=== PATIENT | female | born 1985 | race Caucasian/White ===

== ENCOUNTER 2017-06-29 21:02 | Inpatient (IN) | payer BC ==
[~2017-06-29] VITALS: Ht 170.2 cm; Wt 114.3 kg
[2017-06-29 21:44] LABS: BASOPHILS 0 % (0-2); EOSINOPHILS 0.6 % (0-7); HEMATOCRIT 39.5 % (36.0-48.0); HEMOGLOBIN 12.9 g/dL (12-16); IMMATURE GRANULOCYTES 0.2 % (0-5); LYMPHOCYTES 22.4 % (15-50); MCH 29.1 pg (26.0-34.0); MCHC 32.7 g/dL (31.0-37.0); MEAN PLATELET VOLUME 10.8 fL (7.4-10.4); MONOCYTES 7.3 % (2-11); NEUTROPHILS 69.5 % (40-80); RBC 4.44 10x6/uL (4.00-5.40); RDW 14.2 % (11.5-14.5); WBC 5.2 10x3/uL (4.8-10.8)
[2017-06-29 21:50] LABS: PLATELET COUNT 184 10x3/uL (130-400)
[2017-06-29 22:00] LABS: ALBUMIN 3.1 g/dL (3.4-5.0); ANION GAP 26.1 mmol/L (8-16); BILIRUBIN - TOTAL 0.3 mg/dL (0.2-1.3); CALCIUM 8.7 mg/dL (8.5-10.1); CARBON DIOXIDE 15.1 mmol/L (21.0-32.0); CREATININE - SERUM 1.2 mg/dL (0.6-1.3); POTASSIUM - SERUM 4.2 mmol/L (3.5-5.1); PROTEIN - SERUM 7.2 g/dL (6.4-8.2)
[2017-06-29 22:26] LABS: APPEARANCE CLEAR (CLEAR); BILIRUBIN NEGATIVE (NEGATIVE); COLOR YELLOW (YELLOW); GLUCOSE 1000 mg/dL (NEGATIVE); KETONE LARGE mg/dL (NEGATIVE); NITRITE NEGATIVE (NEGATIVE); PROTEIN NEGATIVE (NEGATIVE); SPECIFIC GRAVITY 1.015 (1.005-1.020); UROBILINOGEN NORMAL (NORMAL)
[2017-06-29 23:28] LABS: UDS - AMPHET NEGATIVE QUAL (NEGATIVE); UDS - BARB NEGATIVE QUAL (NEGATIVE); UDS - BENZO NEGATIVE QUAL (NEGATIVE); UDS - COCAINE NEGATIVE QUAL (NEGATIVE); UDS - OPIATE NEGATIVE QUAL (NEGATIVE); UDS - PCP NEGATIVE QUAL (NEGATIVE); UDS - THC NEGATIVE QUAL (NEGATIVE)
--- NOTE | 2017-06-29 23:50 | NUR ---
PT ARRIVED TO UNIT VIA BED WITH ER STAFF, MOVED SELF TO NEW BED. C/O PAIN ALL OVER BODY /10 AND ACHEY. ADMISSIONS ASSESSMENT AND HISTORY OBTAINED ATT, PLEASE SEE FLOW SHEETS FOR FULL DETAILS. AWAKE, ALERT, AND ORIENTED X4. MARICARMENLA @ 3MM. S1S2 HEARD, NSR ON CM, PPP, CAP REFIL <3 SECONDS. BS ACTIVE X4, REPORTS LAST BM 06/27/17, STATES SHE HAS NOT EATEN SINCE THEN SO NO BM WOULD BE NORMAL FOR HER. DENIES PAIN WHILE URINATING AND NO PROBLEMS URINATING WELL. SKIN SOFT, SMOOTH, INTACT. PIV IN LEFT FOREARM, SALINE LOCKED. BROUGHT PURSE WITH HER, REFUSED TO GO THROUGH FOR VALUBLE DOCUMENTATION, STATES SHE WILL HAVE HER TAKE IT HOME WITH HIM WHEN HE COMES IN THE MORNING. STRENGTH +2 IN ALL EXTREMETIES. BED LOW AND LOCKED, CALL LIGHT IN REACH. VSS, WILL CPOC.
[2017-06-30] VITALS (26 sets, daily range): BP systolic 85–134; BP diastolic 35–90; BMI 37.7
[2017-06-30] MEDS ORDERED: CYMBALTA60 MG PO (00:06)
[2017-06-30] MEDS ORDERED: LIPITOR40 MG PO (00:07)
[2017-06-30] MEDS ORDERED: COZAAR100 MG PO (00:07)
[2017-06-30] MEDS ORDERED: VYVANSE70 MG PO (00:08)
[2017-06-30] MEDS ORDERED: ADDERALL 20 MG20 M1 PO (00:09)
[2017-06-30] MEDS ORDERED: LANTUS INSULIN10 ML SC (00:10)
[2017-06-30] MEDS ORDERED: HUMALOG 30100 UNITS/ SC (00:13)
--- NOTE | 2017-06-30 00:58 | NUR ---
PAGED DR HSU.
--- NOTE | 2017-06-30 01:19 | NUR ---
SPOKE WITH DR HSU, RECIEVED NEW ORDERS.
--- NOTE | 2017-06-30 03:00 | NUR ---
REASSESSMENT COMPLETE PER FLOW SHEET, PLEASE SEE FOR DETAILS. NO CHANGES FROM ADMISSION ASSESSMENT TO NOTE. DENIES PAIN/NEEDS ATT. BED LOW AND LOCKED, CALL LIGHT IN REACH. VSS, WILL CPOC.
--- NOTE | 2017-06-30 05:17 | NUR ---
OBSERVED PT GET UP TO BEDSIDE B[place]NA[place], INSTRUCTED ON CLEAN CATCH FOR URINE SPECIMINE, TOLERATED WELL. ASKED FOR ORAL CARE SUPPLIES, THESE WERE PROVIDED. BED LOW AND LOCKED, CALL LIGHT IN REACH. WILL CPOC.
[2017-06-30 05:19] LABS: BASOPHILS 0 % (0-2); EOSINOPHILS 0.4 % (0-7); HEMATOCRIT 34.7 % (36.0-48.0); HEMOGLOBIN 11.4 g/dL (12-16); LYMPHOCYTES 39.8 % (15-50); MCH 28.7 pg (26.0-34.0); MCHC 32.9 g/dL (31.0-37.0); MCV 87.4 fL (80.0-100.0); MEAN PLATELET VOLUME 10.6 fL (7.4-10.4); MONOCYTES 9.2 % (2-11); NEUTROPHILS 50.6 % (40-80); PLATELET COUNT 163 10x3/uL (130-400); RBC 3.97 10x6/uL (4.00-5.40); RDW 13.9 % (11.5-14.5)
[2017-06-30 05:34] LABS: ALBUMIN 2.4 g/dL (3.4-5.0); ALKALINE PHOSPHATASE 91 U/L (46-116); ALT (SGPT) 14 U/L (10-68); CALCIUM 7.7 mg/dL (8.5-10.1); CHLORIDE - SERUM 104 mmol/L (98-107); CREATININE - SERUM 0.9 mg/dL (0.6-1.3); POTASSIUM - SERUM 4.2 mmol/L (3.5-5.1); SODIUM 137 mmol/L (136-145); eGFR NON AFRICAN AMERICAN 77 mL/min (90-120)
[2017-06-30 05:35] LABS: CALC OSMOLALITY 271 mosm/kg (275-300); CARBON DIOXIDE 19.4 mmol/L (21.0-32.0); GLUCOSE 72 mg/dL (74-106); UREA NITROGEN 9 mg/dL (7-18)
[2017-06-30 06:02] LABS: UDS - AMPHET NEGATIVE QUAL (NEGATIVE); UDS - BARB NEGATIVE QUAL (NEGATIVE); UDS - BENZO NEGATIVE QUAL (NEGATIVE); UDS - COCAINE NEGATIVE QUAL (NEGATIVE); UDS - OPIATE POSITIVE QUAL (NEGATIVE); UDS - PCP NEGATIVE QUAL (NEGATIVE); UDS - THC NEGATIVE QUAL (NEGATIVE)
--- NOTE | 2017-06-30 08:00 | NUR ---
ASSESSMENT COMPLETE - PT EATING CLEAR LIQUID DIET - AFIBRILE - C/O SLIGHT NASUEA BUT BETTER TODAY THAN YESTERDAY - VVS PER CONTINIOUS CARDIAC MONITORING - CALL LIGHT IN REACH - CPOC
--- NOTE | 2017-06-30 09:15 | NUR ---
DR. HSU AT BEDSIDE FOR ASSESSMENT - INCREASED NS TO 250 - TITRATE DIRECTED - REVIEWED POSITIVE OPIATE TEST - PT DENIED TAKING ANY OPIATE - PT USES [facility] - WILL F/U ON HOME MEDICATIONS - CPOC
--- NOTE | 2017-06-30 10:15 | NUR ---
PT REQUEST ICE WATER - GAVE TO PT - PT RESTING WITH EYES CLOSED - RESPIRATIONS REG RATE AND RYTHYM. CPOC
--- NOTE | 2017-06-30 11:00 | NUR ---
ASSESSMENT COMPLETE - PT GIVEN TYENOL FOR BODY ACHES - OTHERWISE VSS - CPOC
--- NOTE | 2017-06-30 12:00 | NUR ---
SPOUSE AT BEDSIDE VISITING - INSTRUCTED SPOUSE TO WEAR PPE - WHEN THIS RN WALKED INTO ROOM SPUSE DID NOT HAVE ON PPE EQUIPMENT - INSTSRUCTED SPOUSE TO WEARE PPE TO PROTECT HIMSELF AND PEOPLE HE MAY BE IN CONTACT AFTER LEAVING PT'S ROOM. SPOUSE AGREED TO DON PPE
[2017-06-30 12:25] LABS: ANION GAP 29.3 mmol/L (8-16); CALCIUM 7.8 mg/dL (8.5-10.1); POTASSIUM - SERUM 4.8 mmol/L (3.5-5.1)
[2017-06-30 12:30] LABS: CARBON DIOXIDE 14.5 mmol/L (21.0-32.0)
--- NOTE | 2017-06-30 13:50 | NUR ---
pt resting - states body aches are less and less - pt feeling better - cpoc
--- NOTE | 2017-06-30 14:50 | NUR ---
pt resting with eyes closed - respirations reg rate and rhythm - continues to be slightly hypotensive while sleeping. continous cardiac monitoring - cpoc
--- NOTE | 2017-06-30 15:00 | NUR ---
assessment complete - pt continues to deny nausea or distress at this time - cpoc
--- NOTE | 2017-06-30 16:00 | NUR ---
I & O COMPLTED - PT RESTING
[2017-06-30 16:34] LABS: ANION GAP 15.4 mmol/L (8-16); CALCIUM 7.8 mg/dL (8.5-10.1); CREATININE - SERUM 1.1 mg/dL (0.6-1.3); POTASSIUM - SERUM 4.2 mmol/L (3.5-5.1)
[2017-06-30 16:35] LABS: CARBON DIOXIDE 20.8 mmol/L (21.0-32.0)
--- NOTE | 2017-06-30 17:00 | NUR ---
BLOOD SUGAR - INSULIN GIVEN BY INSTRUMENT REPAIR SUPERVISOR - PT RESTING IN BED WITH EYES CLOSED - RESPIRATION REG RATE AND RHYTHM VSS - CPOC
--- NOTE | 2017-06-30 18:31 | HP ---
PATIENT: MARCO TOTH MEDICAL RECORD: [id number] ACCOUNT: [id number] LOCATION:[facility] D.[id number] : 84 ADMISSION DATE: 06/29/17 HISTORY AND PHYSICAL EXAMINATION ADMISSION HISTORY AND PHYSICAL HISTORY OF PRESENT ILLNESS: A 31-year-old female admitted to the Emergency Room with reported DKA and positive influenza. PAST MEDICAL HISTORY: Significant for insulin-dependent diabetes mellitus, hypertension, hyperlipidemia, ADD, times 2, tonsillectomy, and Lap-Band. ALLERGIES: LISTED AZITHROMYCIN, SULFA, CECLOR. CURRENT MEDICATIONS: Listed as Cymbalta, Vyvanse, Adderall, Humalog, Lantus, atorvastatin, losartan. REVIEW OF SYSTEMS: Progressively feeling worse, difficulty managing blood sugars, was treated by her friend after a flu swab in the clinic, she works with Tamiflu. Her primary care physician is Dr. Rahman in [place]. Symptoms became worse. The patient presented to the ER. GENERAL: Denies any acute known change in weight, admits to decreased appetite. HEENT: No cephalgia, visual changes, tinnitus, epistaxis or dysphagia. CARDIOVASCULAR: Denies chest pain, denies palpitations. PULMONARY: Denies hemoptysis, denies night sweats. GASTROINTESTINAL: Denies hematemesis, hematochezia or melena. GENITOURINARY: No change. ENDOCRINE: Labile blood sugars with acute illness. PHYSICAL EXAMINATION: VITAL SIGNS: Temp 99.3, blood pressure 103/63, heart rate 93, respirations 18, O2 sats 96% room air. GENERAL: Alert and oriented. HEENT: Head is normocephalic, atraumatic. Eyes: Pupils equal, round, reactive. Ears: Canals patent. TMs are intact. Nose: Nares patent without drainage. Throat: No erythema, no exudates. NECK: Supple. No lymphadenopathy, no JVD. HEART: Regular rate and rhythm. No S3, S4, no rub. LUNGS: Clear to auscultation bilaterally. Breathing is nonlabored. ABDOMEN: Soft, nontender, bowel sounds positive. EXTREMITIES: Present times 4. NEUROLOGIC: No appreciable focal deficits. LABORATORY DATA: Glucose on admission 426. ABG shows pH is mildly acidotic at 7.310, pCO2 of 28, pO2 of 81, bicarbonate 14.1, lactic acid 1.03, potassium was 3.6. Ionized calcium 1.08. Urinalysis, yellow clear, urine pH 5.0, specific gravity 1.015, urine protein is negative. Urine ketones large. Urine glucose is 1000. Urine drug screen is negative, no opiates and no amphetamines. HISTORY AND PHYSICAL [id number] MARCO TOTH Serum ketones large. Influenza was positive. Chest x-ray: No acute cardiovascular disease. Second urine drug screen is positive for opiates. ASSESSMENT AND PLAN: 1. Diabetic ketoacidosis, the patient is admitted to the ICU. Aggressive IV hydration with low blood pressures. Monitor electrolytes q. 4 hours, electrolyte protocol, sliding-scale insulin. Supportive care. Continue Tamiflu that was started as outpatient. 2. Labile insulin-dependent diabetes mellitus. 3. Attention deficit disorder. TRANSINT:[id number] Voice Confirmation ID: [id number] DOCUMENT ID: [id number] REJI HSU DO at 1831 CC: [id number] DICTATION DATE: 06/30/17932 KNOCKOUT MACHINE OPERATOR: 06/30/17 1052 ADM IN [facility] [address] [place] [address]
[2017-06-30 20:07] LABS: ANION GAP 14.6 mmol/L (8-16); CALCIUM 7.9 mg/dL (8.5-10.1); CARBON DIOXIDE 22.3 mmol/L (21.0-32.0); POTASSIUM - SERUM 3.9 mmol/L (3.5-5.1)
--- NOTE | 2017-06-30 22:43 | NUR ---
1900 REPORT RECIEVED, SHIFT ASSESSMENT COMPLETE PER FLOW SHEET. AWAKE AND ALERT, ORIENTED X4. PERRLA @ 3MM. DENIES PAIN/NEEDS ATT. LUNGS CLEAR IN UPPER LOBES AND DIMINISHED IN LOWER. S1S2 HEARD, NSR NOTED ON CM, PPP, CAP REFIL <3 SECONDS. BS ACTIVE X4. DENIES PROBLEMS WITH URINATING. GETS UP TO CAMODE ON HER OWN. USES CALL LIGHT EFFECTIVELY. BED LOW AND LOCKED, CALL LIGHT IN REACH. VSS, WILL CPOC. 2100 PT RESTING, RR EVEN AND UNLABORED, NO S&S OF ACUTE DISTRESS NOTED. BED LOW AND LOCKED, CALL LIGHT IN REACH. VSS, WILL CPOC. 2245 REASSESSMENT COMPLETE PER FLOW SHEET, SEE FOR DETAILS. NO CHANGES FROM PREVIOUS ASSESSMENT TO NOTE. DENIES PAIN/NEEDS ATT. BED LOW AND LOCKED, CALL LIGHT IN REACH. VSS, WILL CPOC.
[2017-07-01] VITALS (24 sets, daily range): BP systolic 84–139; BP diastolic 49–97
--- NOTE | 2017-07-01 01:00 | NUR ---
RESTING, RR EVEN AND UNLABORED, VSS, BED LOW AND LOCKED, CALL LIGHT IN REACH. WILL CPOC.
--- NOTE | 2017-07-01 03:00 | NUR ---
REASSESSMENT COMPLETE PER FLOW SHEET, PLEASE SEE FOR DETAILS. NO CHANGES FROM PREVIOUS ASSESSMENT TO NOTE. VSS, BED LOW AND LOCKED, CALL LIGHT IN REACH. WILL CPOC.
--- NOTE | 2017-07-01 05:00 | NUR ---
RESTING, NO S&S ACUTE DISTRESS NOTED. VSS, BED LOW AND LOCKED, CALL LIGHT IN REACH. WILL CPOC.
[2017-07-01 08:07] LABS: CALC OSMOLALITY 285 mosm/kg (275-300); CALCIUM 7.4 mg/dL (8.5-10.1); CARBON DIOXIDE 18.7 mmol/L (21.0-32.0); CHLORIDE - SERUM 110 mmol/L (98-107); CREATININE - SERUM 0.7 mg/dL (0.6-1.3); GLUCOSE 240 mg/dL (74-106); POTASSIUM - SERUM 4.4 mmol/L (3.5-5.1); SODIUM 141 mmol/L (136-145); UREA NITROGEN 5 mg/dL (7-18); eGFR NON AFRICAN AMERICAN > 90 mL/min (90-120)
--- NOTE | 2017-07-01 08:20 | NUR ---
SITTING UP IN BED. DENIES NEEDS.
[2017-07-01 12:43] LABS: CALC OSMOLALITY 278 mosm/kg (275-300); CALCIUM 7.8 mg/dL (8.5-10.1); CARBON DIOXIDE 22.3 mmol/L (21.0-32.0); CHLORIDE - SERUM 112 mmol/L (98-107); CREATININE - SERUM 0.7 mg/dL (0.6-1.3); GLUCOSE 85 mg/dL (74-106); SODIUM 142 mmol/L (136-145); UREA NITROGEN 5 mg/dL (7-18); eGFR NON AFRICAN AMERICAN > 90 mL/min (90-120)
[2017-07-01 12:44] LABS: POTASSIUM - SERUM 3.7 mmol/L (3.5-5.1)
[2017-07-01 16:37] LABS: CALC OSMOLALITY 279 mosm/kg (275-300); CARBON DIOXIDE 22.1 mmol/L (21.0-32.0); CHLORIDE - SERUM 110 mmol/L (98-107); CREATININE - SERUM 0.7 mg/dL (0.6-1.3); GLUCOSE 99 mg/dL (74-106); POTASSIUM - SERUM 3.9 mmol/L (3.5-5.1); SODIUM 142 mmol/L (136-145); UREA NITROGEN 4 mg/dL (7-18); eGFR NON AFRICAN AMERICAN > 90 mL/min (90-120)
--- NOTE | 2017-07-01 19:15 | NUR ---
ASSESSMENT COMPLETE. S1S2. NSR SHOWING ON MONITOR. RR DIMINISHED BILATERALLY IN MID AND LOWER LOBES; SHALLOW. DENIES PAIN WITH BREATHING; C/O PAIN 2/10 WITH BODY ACHES. AAO. PERRLA. FULL RANGE OF MOVEMENT; UP TO BEDSIDE COMMODE INDEPENDENTLY. COMMUNICATION CLEAR. ISOLATION; DROPLET PRECAUTIONS. RADIAL AND PEDAL PULSES PALPATED.
[2017-07-01 20:31] LABS: CALC OSMOLALITY 282 mosm/kg (275-300); CALCIUM 7.7 mg/dL (8.5-10.1); CARBON DIOXIDE 22.5 mmol/L (21.0-32.0); CHLORIDE - SERUM 110 mmol/L (98-107); CREATININE - SERUM 0.7 mg/dL (0.6-1.3); POTASSIUM - SERUM 3.9 mmol/L (3.5-5.1); SODIUM 141 mmol/L (136-145); UREA NITROGEN 3 mg/dL (7-18); eGFR NON AFRICAN AMERICAN > 90 mL/min (90-120)
[2017-07-01 20:32] LABS: GLUCOSE 196 mg/dL (74-106)
--- NOTE | 2017-07-01 20:40 | NUR ---
SPOKE WITH DR. TERESA. ORDERS RECEIVED. UPDATED ON PT CONDITION. PT C/O COUGH REQUEST MEDICATION.
--- NOTE | 2017-07-01 22:00 | NUR ---
NO VISITORS DURING VISITATION.
--- NOTE | 2017-07-01 22:00 | NUR ---
INSULIN DRIP STOPPED. STARTED Q4H S/S PER ORDERS. KETONES CAME BACK NEGATIVE.
--- NOTE | 2017-07-01 23:20 | NUR ---
REASSESSMENT COMPLETE. NO ACUTE CHANGES FROM PREVIOUS ASSESSMENT. VSS. DENIES NEEDS AT THIS TIME. DENIES PAIN. WILL CONTINUE TO MONITOR. REQUEST TO BE SENT TO ROOM ON FLOOR TOMORROW IF POSSIBLE.
[2017-07-02] VITALS (10 sets, daily range): BP systolic 105–151; BP diastolic 62–120; Ht 170.2 cm; Wt 114.3 kg
--- NOTE | 2017-07-02 00:30 | NUR ---
PT RESTING; EYES CLOSED. VSS. NO DISTRESS NOTED. WILL CONTINUE PLAN OF CARE.
--- NOTE | 2017-07-02 02:50 | NUR ---
REASSESSMENT COMPLETE. NO ACUTE CHANGES FROM PREVIOUS ASSESSMENT. VSS. WILL FOLLOW POC.
[2017-07-02 05:32] LABS: BASOPHILS 0.3 % (0-2); EOSINOPHILS 4.2 % (0-7); HEMATOCRIT 32.9 % (36.0-48.0); HEMOGLOBIN 10.8 g/dL (12-16); IMMATURE GRANULOCYTES 0.6 % (0-5); LYMPHOCYTES 50.1 % (15-50); MCH 28.5 pg (26.0-34.0); MCHC 32.8 g/dL (31.0-37.0); MCV 86.8 fL (80.0-100.0); MEAN PLATELET VOLUME 10.3 fL (7.4-10.4); MONOCYTES 8.1 % (2-11); NEUTROPHILS 36.7 % (40-80); PLATELET COUNT 137 10x3/uL (130-400); RBC 3.79 10x6/uL (4.00-5.40); RDW 14.2 % (11.5-14.5)
[2017-07-02 05:33] LABS: WBC 3.4 10x3/uL (4.8-10.8)
[2017-07-02 05:41] LABS: HEMOGLOBIN A1C 10.1 % (4.8-6.0)
--- NOTE | 2017-07-02 06:00 | NUR ---
NO VISITORS DURING VISITATION.
[2017-07-02 06:04] LABS: CALC OSMOLALITY 281 mosm/kg (275-300); CALCIUM 7.5 mg/dL (8.5-10.1); CARBON DIOXIDE 23.8 mmol/L (21.0-32.0); CHLORIDE - SERUM 112 mmol/L (98-107); CREATININE - SERUM 0.7 mg/dL (0.6-1.3); MAGNESIUM - SERUM 1.7 mg/dL (1.8-2.4); PHOSPHOROUS 2.1 mg/dL (2.5-4.9); POTASSIUM - SERUM 3.7 mmol/L (3.5-5.1); SODIUM 143 mmol/L (136-145); THYROID STIMULATING HORMONE 5.48 uIU/mL (0.36-3.74); UREA NITROGEN 3 mg/dL (7-18); eGFR NON AFRICAN AMERICAN > 90 mL/min (90-120)
[2017-07-02 06:07] LABS: GLUCOSE 103 mg/dL (74-106)
[2017-07-02 08:49] LABS: CALC OSMOLALITY 282 mosm/kg (275-300); CALCIUM 7.5 mg/dL (8.5-10.1); CARBON DIOXIDE 25.2 mmol/L (21.0-32.0); CHLORIDE - SERUM 110 mmol/L (98-107); CREATININE - SERUM 0.6 mg/dL (0.6-1.3); POTASSIUM - SERUM 3.9 mmol/L (3.5-5.1); SODIUM 142 mmol/L (136-145); UREA NITROGEN 3 mg/dL (7-18); eGFR NON AFRICAN AMERICAN > 90 mL/min (90-120)
[2017-07-02 08:59] LABS: GLUCOSE 161 mg/dL (74-106)
--- NOTE | 2017-07-02 10:01 | NUR ---
* Is the patient Alert and Oriented? Yes 0 * PCP Dr. Rahman in [place] 0 * [facility] * Preadmission Environment Home with Family 0 * ADLs Independent 0 * Can the patient safely return to the preadmission environment? Yes 0 * Has this patient been hospitalized within the prior 30 days at any hospital? No Patient Name: MARCO TOTH Admission Status: ER Accout number: [id number] Admission Date: 06-29-2017 : 1985 Admission Diagnosis: Attending: REJI HSU Current LOS: 3 Anticipated DC Date: Planned Disposition: Home Primary Insurance: SMART Discharge Planning Comments: CM met with patient to assess dc plans/needs. Patient states she lives at home with her and their 3 daughters, twins age 4 and 7. 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 She denies any needs at discharge. CM will follow & assist as needed. Huc Ob: Selin Grissom
--- NOTE | 2017-07-02 10:06 | NUR ---
* Is the patient Alert and Oriented? Yes 0 * How many steps to enter\exit or inside your home? Ramp 0 * PCP Dr. Michelle Sue 0 * Pharmacy [facility] on [address] 0 * Preadmission Environment Home with Family 0 * ADLs Independent 0 * Equipment Nebulizer Oxygen 0 * List name and contact numbers for known caregivers / representatives who currently or will assist patient after discharge: Pamela Rojas [phone] 0 * Additional services required to return to the preadmission environment? No 0 * Can the patient safely return to the preadmission environment? Yes 0 * Has this patient been hospitalized within the prior 30 days at any hospital? No Patient Name: BUD WAY Admission Status: ER Accout number: [id number] Admission Date: 06-30-2017 : 04-13-1940 Attending: EFFIE BRYANT Current LOS: 2 Planned Disposition: Home Primary Insurance: MEDICARE A & B Discharge Planning Comments: CM met with patient to assess dc plans/needs. Patient states he lives at home with a friend, for whom he cares for. He states his daughter lives next door and helps with any needs. He reports he is independent with all ADL's & IADL's, does not use any assistive devices for mobility. He has portable & home O2 @ 2L and a nebulizer. He has not had home health services in the past and declines the need for them at this time. At dc, he plans to return home. CM will follow & assist as needed. Casting Tester: Selin Grissom
[2017-07-02 12:10] LABS: CALCIUM 7.6 mg/dL (8.5-10.1); CARBON DIOXIDE 25.5 mmol/L (21.0-32.0); CHLORIDE - SERUM 108 mmol/L (98-107); CREATININE - SERUM 0.7 mg/dL (0.6-1.3); POTASSIUM - SERUM 4.1 mmol/L (3.5-5.1); SODIUM 141 mmol/L (136-145); eGFR NON AFRICAN AMERICAN > 90 mL/min (90-120)
[2017-07-02 12:13] LABS: CALC OSMOLALITY 286 mosm/kg (275-300); GLUCOSE 254 mg/dL (74-106); UREA NITROGEN 4 mg/dL (7-18)
[2017-07-02] MEDS ORDERED: TAMIFLU75 MG PO (12:56)
--- NOTE | 2017-07-02 13:26 | NUR ---
DR HSU HERE. DCD INSTRUCTIONS WRITTEN AND DR HSU STATES THAT PT TO STAY HOME UNTIL SUNDAY AND RETURN TO WORK AFTER THAT IF AFEBRILE.
--- NOTE | 2017-07-02 13:49 | NUR ---
PT STATES THAT SHE DID HAVE TAMAFLU PRIOR TO THIS HOSPITAL STAY. SPOKE TO DR HSU AND HE STATES THAT IT IS A 5 DAY COURSE. DISCUSSED THIS WITH THE PT. TODAY IS THE 5TH DAY ACCORDING TO PT.
--- NOTE | 2017-07-10 07:37 | DS ---
PATIENT:MARCO TOTH :[birth year] MEDICAL RECORD: [id number] DISCHARGE SUMMARY ADMISSION DATE: 06/29/17 DISCHARGE DATE: 07/02/17 DATE OF ADMISSION: 06/29/2017 DATE OF DISCHARGE: 07/02/2017 ADMISSION DIAGNOSES: Diabetic ketoacidosis, insulin-dependent and influenza. DISCHARGE DIAGNOSES: Diabetic ketoacidosis, insulin-dependent diabetes mellitus, and influenza. HOSPITAL COURSE: The patient was admitted through the Emergency Room, unassigned med, does not have a doctor at this facility, found to be severely hyperglycemic and dehydrated secondary to influenza and had serum ketones as well and was mildly acidotic on arterial blood gas. The patient was aggressively hydrated, started on an insulin drip, as significantly improved is off the insulin drip and is back on her home medications. Serum ketones are now negative. She is back on her regular insulin regimen, feeling much better, anxious to go home. The patient is discharged home in significantly improved condition and we will continue her home medications. VITAL SIGNS ON DISCHARGE: Temperature 98.4, blood pressure is 134/91, heart rate 60, respirations 24 and O2 sats 97% on room air. DISCHARGE INSTRUCTIONS: She will follow up with her primary care physician, Dr. Rahman and return to the clinic as needed. She is instructed and given a note to remain off work until next Sunday. Complete her Tamiflu. See chart for further details. TRANSINT:[id number] Voice Confirmation ID: [id number] DOCUMENT ID: [id number] REJI HSU DO at 0737 CC: [id number] DICTATION DATE: 07/02/17 1303 WIRE TECHNICIAN: 07/02/17 1448 DIS IN 07/02/17 [facility] [address] [place] [id number]
== END 2017-07-02 15:17 | disposition home or self-care (01) | DRG 152 ==
LOC: D.ER 21:02 → D.ICU 23:23
PROVIDERS: Emergency Medicine; Physician Assistant Medical; ADMIT Family Medicine
DX: J11.1 Influenza due to unidentified influenza virus with other respiratory manifestations (principal); E11.10 Type 2 diabetes mellitus with ketoacidosis without coma; Z79.4 Long term (current) use of insulin; I10 Essential (primary) hypertension; E78.5 Hyperlipidemia, unspecified; F98.8 Other specified behavioral and emotional disorders with onset usually occurring in childhood and adolescence

== ENCOUNTER 2019-07-16 13:58 | Emergency (ER) | payer OTHER ==
[~2019-07-16] VITALS: Ht 170.2 cm; Wt 102.3 kg
[~2019-07-16 13:58] MED LIST: ADDERALL 20 MG20 M1 PO; COZAAR100 MG PO; CYMBALTA60 MG PO; HUMALOG 30100 UNITS/ SC; LANTUS INSULIN10 ML SC; LIPITOR40 MG PO; TAMIFLU75 MG PO; VYVANSE70 MG PO
[2019-07-16 14:02] VITALS: Ht 170.2 cm; Wt 102.3 kg
[2019-07-16 14:30] LABS: BASOPHILS 0.3 % (0-2); EOSINOPHILS 3.1 % (0-7); HEMATOCRIT 39.4 % (36.0-48.0); HEMOGLOBIN 13.2 g/dL (12-16); IMMATURE GRANULOCYTES 0.1 % (0-5); MCH 30.1 pg (26.0-34.0); MCHC 33.5 g/dL (31.0-37.0); MEAN PLATELET VOLUME 9.6 fL (7.4-10.4); MONOCYTES 5.9 % (2-11); NEUTROPHILS 58.6 % (40-80); RBC 4.38 10x6/uL (4.00-5.40); WBC 7.6 10x3/uL (4.8-10.8)
[2019-07-16 14:44] LABS: APPEARANCE HAZY (CLEAR); COLOR YELLOW (YELLOW); GLUCOSE 500 mg/dL (NEGATIVE); KETONE LARGE mg/dL (NEGATIVE); NITRITE NEGATIVE (NEGATIVE); PROTEIN NEGATIVE (NEGATIVE); SPECIFIC GRAVITY 1.025 (1.005-1.020)
[2019-07-16 14:48] LABS: BILIRUBIN NEGATIVE (NEGATIVE); CALC OSMOLALITY 272 mosm/kg (275-300); CARBON DIOXIDE 23.9 mmol/L (21.0-32.0); CHLORIDE - SERUM 102 mmol/L (98-107); POTASSIUM - SERUM 4.7 mmol/L (3.5-5.1); SODIUM 138 mmol/L (136-145); UREA NITROGEN 9 mg/dL (7-18); eGFR NON AFRICAN AMERICAN 67 mL/min (90-120)
[2019-07-16 14:49] LABS: BACTERIA MANY /hpf (NEGATIVE); RED CELLS - URINE 0-5 /hpf (0-5); WHITE CELLS - URINE 0-5 /hpf (NEGATIVE)
[2019-07-16 14:50] LABS: HCG URINE NEGATIVE (NEGATIVE); MUCUS <1+ /lpf (NONE SEEN)
[2019-07-16 14:52] LABS: GLUCOSE 65 mg/dL (74-106)
[2019-07-16 14:57] LABS: ALBUMIN 3.1 g/dL (3.4-5.0); ALKALINE PHOSPHATASE 170 U/L (46-116); ALT (SGPT) 26 U/L (10-68); AMYLASE - SERUM 27 U/L (25-115); BILIRUBIN - TOTAL 0.31 mg/dL (0.2-1.3); PROTEIN - SERUM 7.2 g/dL (6.4-8.2)
[2019-07-16 15:00] LABS: LIPASE 39 U/L (73-393); TROPONIN-I < 0.017 ng/mL (0.000-0.060)
[2019-07-16 15:11] LABS: PLATELET COUNT 366 10x3/uL (130-400)
[2019-07-16] MEDS ORDERED: HYDROCODON-ACE1 EAC2 PO (16:09)
[2019-07-16] MEDS ORDERED: FLAGYL500 MG PO (16:09)
[2019-07-16 16:29] VITALS: BP 105/54
== END 2019-07-16 16:30 | disposition home or self-care (01) ==
LOC: D.ER 13:58
PROVIDERS: Family Medicine
DX: R10.9 Unspecified abdominal pain (principal); N76.0 Acute vaginitis; E11.9 Type 2 diabetes mellitus without complications; I10 Essential (primary) hypertension; Z72.0 Tobacco use; Z79.4 Long term (current) use of insulin

== ENCOUNTER 2020-04-19 19:12 | Emergency (ER) | payer BC ==
[~2020-04-19] VITALS: Ht 170.2 cm; Wt 100.0 kg
[~2020-04-19 19:12] MED LIST changes: +FLAGYL500 MG PO; +HYDROCODON-ACE1 EAC2 PO
[2020-04-19 19:54] VITALS: Ht 170.2 cm; Wt 100.0 kg
[2020-04-19] MEDS ORDERED: VYVANSE70 MG PO (19:56)
[2020-04-19] MEDS ORDERED: REXULTI1 MG PO (19:56)
[2020-04-19 20:56] LABS: BASOPHILS 0.5 % (0-2); EOSINOPHILS 8.8 % (0-7); HEMATOCRIT 35.2 % (36.0-48.0); HEMOGLOBIN 11.8 g/dL (12-16); IMMATURE GRANULOCYTES 0.1 % (0-5); LYMPHOCYTES 32.8 % (15-50); MCH 29.2 pg (26.0-34.0); MCHC 33.5 g/dL (31.0-37.0); MCV 87.1 fL (80.0-100.0); MEAN PLATELET VOLUME 10.6 fL (7.4-10.4); MONOCYTES 4.7 % (2-11); NEUTROPHILS 53.1 % (40-80); PLATELET COUNT 310 10x3/uL (130-400); RBC 4.04 10x6/uL (4.00-5.40); RDW 13.5 % (11.5-14.5); WBC 7.8 10x3/uL (4.8-10.8)
[2020-04-19 21:01] LABS: CALC OSMOLALITY 271 mosm/kg (275-300); CALCIUM 8.9 mg/dL (8.5-10.1); CARBON DIOXIDE 24.8 mmol/L (21.0-32.0); CHLORIDE - SERUM 101 mmol/L (98-107); CREATININE - SERUM 0.7 mg/dL (0.6-1.3); POTASSIUM - SERUM 4.4 mmol/L (3.5-5.1); SODIUM 133 mmol/L (136-145); UREA NITROGEN 14 mg/dL (7-18); eGFR NON AFRICAN AMERICAN > 90 mL/min (90-120)
[2020-04-19 21:07] LABS: ALKALINE PHOSPHATASE 115 U/L (30-120); ALT (SGPT) 15 U/L (10-68); BILIRUBIN - TOTAL 0.11 mg/dL (0.2-1.3); PROTEIN - SERUM 6.9 g/dL (6.4-8.2)
[2020-04-19 21:13] LABS: BILIRUBIN NEGATIVE (NEGATIVE); KETONE NEGATIVE (NEGATIVE); NITRITE NEGATIVE (NEGATIVE); UROBILINOGEN NORMAL mg/dL (< 2)
[2020-04-19 21:14] LABS: BACTERIA FEW HPF (NONE SEEN); EPITHELIAL CELLS 0-5 /hpf (0-5); HCG URINE NEGATIVE (NEGATIVE); WHITE CELLS - URINE 0-5 HPF (0-4)
[2020-04-19 21:27] LABS: GLUCOSE 194 mg/dL (74-106)
[2020-04-19] MEDS ORDERED: TYLENOL W/CODEI1 TAB PO (21:52)
[2020-04-19 22:13] VITALS: BP 124/77
== END 2020-04-19 22:43 | disposition home or self-care (01) ==
LOC: D.ER 19:12
PROVIDERS: Family Medicine
DX: J06.9 Acute upper respiratory infection, unspecified (principal); E10.9 Type 1 diabetes mellitus without complications; I10 Essential (primary) hypertension; E78.5 Hyperlipidemia, unspecified; Z72.0 Tobacco use; Z79.4 Long term (current) use of insulin; R51 Headache; R53.81 Other malaise; R05 Cough; R68.83 Chills (without fever)